=== PATIENT | male | born 1960 | race Caucasian/White ===

== ENCOUNTER 2019-10-29 14:02 | Emergency (ER) | payer MEDICAID ==
[~2019-10-29] VITALS: Ht 177.8 cm; Wt 86.2 kg
--- NOTE | 2019-10-29 14:08 | NUR ---
jean carlos, c/o hyperglycemia and migraine x 6 days, BS 250 at home, off metformin x 1 year, to ER bed 2, hooked to monitor, changed to hosp gown, warm blanket provided, awaiting MD montgomery
--- NOTE | 2019-10-29 14:11 | NUR ---
Dr Elizabeth at bedside
--- NOTE | 2019-10-29 14:24 | NUR ---
WHEELED OUT VIA [facility]NEY FOR CT SCAN
[2019-10-29] MEDS ORDERED: ACETAMINOPHEN ES 500 MG TABLET PO ONE (14:30)
[2019-10-29] MEDS ORDERED: IV NS 0.9% 1,000 ML BAG IV ONE (14:30)
[2019-10-29] MEDS ORDERED: diphenhydrAMINE HCL 50 MG/ML VIAL IV ONE (14:30)
[2019-10-29 14:40] LABS: BASOPHILS # (AUTO) 0.3 /CMM (0.0-0.2); BASOPHILS % (AUTO) 2.9 % (0.0-2.0); EOSINOPHILS % (AUTO) 2.1 % (0.0-6.0); LYMPHOCYTES # (AUTO) 2.6 /CMM (0.8-4.8); LYMPHOCYTES % (AUTO) 27.5 % (20.0-44.0); MEAN CORPUSCULAR VOLUME 91 fL (80-96); MONOCYTES # (AUTO) 0.8 /CMM (0.1-1.30); MONOCYTES % (AUTO) 8.7 % (2.0-12.0); NEUTROPHILS # (AUTO) 5.6 /CMM (1.8-8.9); NEUTROPHILS % (AUTO) 58.8 % (43.0-81.0); PLATELET COUNT (AUTO) 199 /CMM (150-450); RED BLOOD CELL COUNT(AUTO) 4.83 MIL/uL (4.5-6.0)
[2019-10-29] MEDS ORDERED: ACETAMINOPHEN ES 500 MG TABLET ONE (14:49)
[2019-10-29] MEDS ORDERED: diphenhydrAMINE HCL 50 MG/ML VIAL ONE (14:49)
[2019-10-29 15:27] LABS: HEMATOCRIT 46 % (39-51); HEMOGLOBIN 16.4 g/dL (13.5-17.5)
[2019-10-29 15:38] LABS: WHITE BLOOD COUNT (AUTO) 9.6 K/uL (4.3-11.0)
[2019-10-29 15:41] LABS: MEAN CORPUSCULAR HGB CONC 36 g/dl (31.0-36.0)
[2019-10-29 16:06] LABS: CALCIUM, SERUM 9.1 mg/dL (8.5-10.1); POTASSIUM 4.4 mmol/L (3.5-5.1)
[2019-10-29 16:12] LABS: BILIRUBIN,DIRECT 0.1 mg/dL (0.0-0.2); BILIRUBIN,TOTAL 0.3 mg/dL (0.2-1.0); TOTAL PROTEIN, SERUM 7.1 g/dL (6.4-8.2)
--- NOTE | 2019-10-29 16:29 | NUR ---
CALLED LAB FOR LIPID PANEL BLOOD DRAW
--- NOTE | 2019-10-29 16:54 | NUR ---
collected blood fro lipid panel.
[2019-10-29 16:59] VITALS: BP 134/79
--- NOTE | 2019-10-29 17:01 | NUR ---
IV removed. Catheter intact and site benign. Pressure and 4x4 applied to site. No bleeding noted.Patient discharged to home in stable condition. Written and verbal after care instructions given. Patient verbalizes understanding of instruction.
[2019-10-29 18:03] LABS: CHOLESTEROL 247 mg/dL (<200); HDL CHOLESTEROL 17 mg/dL (40-60); LDL 57 mg/dL (0-99); TRIGLYCERIDES 1957 mg/dL (30-150)
== END 2019-10-29 17:01 | disposition home or self-care (01) ==
LOC: ER 14:08
DX: E11.65 Type 2 diabetes mellitus with hyperglycemia (principal); E78.5 Hyperlipidemia, unspecified; I10 Essential (primary) hypertension
CPT/HCPCS: 36415; 70450; 71045; 80048; 80061; 80076; 82962; 85025; 96361; 96374; 99285; J1200; J7030